=== PATIENT | female | born 1990 | race Caucasian/White ===

== ENCOUNTER 2018-06-12 10:45 | Inpatient (IN) | payer OTHER ==
[2018-06-12] MEDS ORDERED: CITRIC ACID/SODIUM CITRATE 30 ML UNIT-DOSE CUP PO ONE (11:57)
[2018-06-12] MEDS ORDERED: ELECTROLYTE-148 SOLN 500 ML IV ONE (11:57)
[2018-06-12] MEDS ORDERED: ELECTROLYTE-148 SOLN 1,000 ML IV SCH (12:00)
--- NOTE | 2018-06-12 12:07 | HP ---
Past Medical History - Admission Chief Complaint: Here for scheduled c section. History of Present Illness: 27 y/o female with SIUP at 39 weeks here for scheduled repeat section and bilateral tubal ligation. Pt desires sterilization and consents were signed in early may 2018. uncomplicated. No issues today. + FM, no VB/LOF/Ctx. History Source: Patient, Medical Record Limitations to Obtaining History: No Limitations, Intoxication - Past Medical History TECHNICAL TRANSLATOR: No: Dementia, Migraine Cardiovascular: No: CAD, HTN Pulmonary: No: Asthma, COPD, Pulmonary Embolus Gastrointestinal: No: GERD, Hiatal Hernia Hepatobiliary: No: Hepatitis B, Hepatitis C Renal/: No: Renal Failure, UTI ...: 5 ...Para: 2 ...Term: 2 ...: 0 ...Spon : 2 ...Induced : 0 ...Multiple Gestation: 0 ...LMP: 09/11/18 ...EDC by Sono: 06/18/18 Heme/Onc: No: Anemia Infectious Disease: No: MRSA, STD's Psych: No: Anxiety, Bipolar, Depression - Past Surgical History Past Surgical History: Yes: None Hx Myomectomy: No Hx Transabdominal Cerclage: No - Smoking History Smoking history: Never smoked Have you smoked in the past 12 months: No - Alcohol/Substance Use Hx Alcohol Use: No History of Substance Use: reports: None - Social History Usual Living Arrangement: Yes: With Spouse ADL: Independent History of Recent Travel: No Home Medications - Allergies Allergies/Adverse Reactions: Allergies Allergy/AdvReac Type Severity Reaction Status Date / Time No Known Allergies Allergy Verified 06/12/18 11:49 - Home Medications Home Medications: Ambulatory Orders NK [No Known Home Medication] 06/12/18 Review of Systems - Review of Systems Constitutional: reports: No Symptoms Eyes: reports: No Symptoms HENT: reports: No Symptoms Neck: reports: No Symptoms Cardiovascular: reports: No Symptoms Respiratory: reports: No Symptoms Gastrointestinal: reports: No Symptoms Genitourinary: reports: No Symptoms Breasts: reports: No Symptoms Reported Musculoskeletal: reports: No Symptoms Integumentary: reports: No Symptoms Neurological: reports: No Symptoms Endocrine: reports: No Symptoms Hematology/Lymphatic: reports: No Symptoms Psychiatric: reports: No Symptoms Physical Exam - Maternity Vital Signs: Vital Signs Temperature 97.7 F 04/11/19 10:45 Pulse Rate 68 06/12/18 10:45 Respiratory Rate 20 06/12/18 10:45 Blood Pressure 127/60 06/12/18 10:45 O2 Sat by Pulse Oximetry (%) Constitutional: Yes: Well Nourished, No Distress, Calm Eyes: Yes: Conjunctiva Clear, EOM Intact HENT: Yes: Atraumatic Neck: Yes: Supple Lungs: Clear to auscultation Breast(s): Yes: WNL - Abdominal Exam/OB Number of Fetuses: Single Presentation: Vertex Category: I Accelerations: None - Vaginal Exam/OB Amniotic Membrane Status: Intact - Physical Exam Psychiatric: Yes: Alert, Oriented Hemorrhage Risk Assessment - Risk Factors Medium Risk Factors: Yes: Prior , uterine surgery,or multiple laparotomies Risk Score: 1 Risk Level: Medium Risk Problem List - Problems (1) Term Code(s): Z34.80 - ENCOUNTER FOR SUPRVSN OF NORMAL , UNSP TRIMESTER (2) Encounter for sterilization Code(s): Z30.2 - ENCOUNTER FOR STERILIZATION Assessment/Plan 27 y/o with SIUP at 39 weeks by early sonogram (unsure LMP) here for scheduled c section and tubal ligation NST NPO Altamirano Anesthesia/nursery aware consents signed
[2018-06-12] MEDS ORDERED: ONDANSETRON 4 MG/2 ML VIAL IVPUSH PRN (12:58)
[2018-06-12] MEDS ORDERED: morphine SULFATE/Preservative Free 0.5 MG/ML (1cc Syringe) ONE (13:04)
[2018-06-12] MEDS ORDERED: METHYLERGONOVINE MALEATE 0.2 MG/1 ML AMP IM PRN (13:09)
[2018-06-12] MEDS ORDERED: oxyCODONE HCL 5 MG TABLET PO PRN (13:09)
[2018-06-12] MEDS ORDERED: KETOROLAC TROMETHAMINE 30 MG/1 ML VIAL ONE (13:18)
[2018-06-12] MEDS ORDERED: SODIUM CHLORIDE 0.9% P/F 10 ML VIAL IJ ONE (13:18)
[2018-06-12] MEDS ORDERED: ceFAZolin SODIUM 1 GM VIAL ONE (13:18)
--- NOTE | 2018-06-12 14:07 | OP ---
Operative Note - Note: Operative Date: 06/12/18 ([id number]) Pre-Operative Diagnosis: prior delivery, desire for sterilization, declined TOLAC Operation: repeat low transverse delivery Findings: normal b/l tubes and ovaries live female infant Post-Operative Diagnosis: Same as Pre-op Surgeon: Yolanda Moore Pug Machine Operator: Dirk Dorsey Anesthesiologist/HEDIS REVIEW NURSE: Morteza Lao Anesthesia: Spinal Specimens Removed: placenta, portions of bilateral fallopian tubes Estimated Blood Loss (mls): 600 Operative Report Dictated: Yes
[2018-06-12] MEDS: OXYTOCIN 20 UNITS in 0.9% NS 20 UNIT/1,000 ML INFUS.BAG IV SCH (14:10)
--- NOTE | 2018-06-12 14:43 | OP ---
DATE OF OPERATION: 06/12/2018 PREOPERATIVE DIAGNOSES: Prior section, desire for sterilization. POSTOPERATIVE DIAGNOSES: Prior section, desire for sterilization. PROCEDURE: Repeat low transverse section, bilateral tubal ligation. SURGEON: Yolanda Moore DO ANESTHESIA: Spinal by YONAS Torres. CERTIFIED PERSONAL TRAINER: OLU Bustos ESTIMATED BLOOD LOSS: 600 mL. COMPLICATIONS: None. SPECIMENS REMOVED: Placenta. COUNTS: Sponge, instrument and needle counts correct. DISPOSITION: Stable to PACU. BRIEF HISTORY AND PROCEDURE: Patient is a 27-year-old female who had been seen in the office and counseled on her options for delivery and elected to undergo a repeat section and bilateral tubal ligation. Consents for the tubal ligation were signed in the office a month prior and consent for the was signed upon admission on June 12, 2018. After consents were confirmed the patient was taken back to the operating room, given spinal anesthesia and placed in the dorsal supine position. A Altamirano catheter was placed under sterile conditions. She was prepped and draped in the usual sterile fashion. A hard timeout was performed. A Pfannenstiel skin incision was created in the skin with a scalpel and carried to the underlying layer of rectus fascia sharply. The fascia was incised on either side of the midline sharply and the fascial incision was carried in superolateral direction sharply. The fascia was tented upward and dissected off the underlying layer of rectus fascia sharply. The musculature was identified in the midline, was laterally and the peritoneum was identified and entered bluntly to allow for adequate room for delivery. A bladder blade was then inserted. A transverse incision was created in the lower uterine segment which was extended in a superolateral direction bluntly. The infant was delivered from the right occiput transverse position without difficulty. The anterior and posterior shoulder delivered with ease along with the remainder of the . The cord was clamped twice and cut in between. The was taken back to the warmer to be assessed by the neonatology staff. The placenta was then delivered intact. It was manually extracted from the uterus. The uterus was exteriorized from the abdomen, inspected and cleared of any amniotic membrane and blood clot and debris with a dry lap sponge. The hysterotomy was reapproximated in a double-layer closure, first using 1 Vicryl in running locked fashion, second using 0 Biosyn in a running fashion. Excellent hemostasis was achieved. Next the tubal ligation was performed first by elevating the right fallopian tube in the isthmic portion with the Stephanie clamp. Approximately 2 cm of tube was tied off with 2 free ties and excised with Metzenbaum scissors and sent to Pathology for permanent evaluation. The same procedure was repeated on the left fallopian tube. Bilateral tubal sites were noted to be hemostatic. The posterior cul-de-sac was suctioned of any blood clot and debris. The uterus was placed back in the abdomen. Bilateral gutters were inspected and cleared of all blood clot and debris. Bilateral tubal sites were noted to be hemostatic. The hysterotomy was noted to be hemostatic. One piece of 2 cm of Surgicel was placed on the left angle of the incision for a small amount of bleeding that was noted. Hemostasis was achieved after this. The peritoneum was reapproximated using 2-0 chromic in a running fashion. The musculature was reapproximated in a single interrupted suture using 2-0 chromic. The fascia was reapproximated using 1 Vicryl in a running fashion. The subcutaneous tissue was irrigated and hemostasis was achieved with the Bovie cautery. The subcutaneous tissue was reapproximated using 3-0 Vicryl in a running fashion. The skin was reapproximated using 3-0 Vicryl in a subcuticular fashion. Steri-Strips were applied. Patient tolerated the procedure well and was recovering in stable condition in the PACU after the procedure. YOLANDA MOORE DO /[id number]
[2018-06-12] MEDS ORDERED: diphenhydrAMINE HCL 25 MG CAPSULE (FP) PO ONE (15:10)
[2018-06-13] MEDS: SIMETHICONE 80 MG TAB.CHEW (FP) PO PRN (05:10)
[2018-06-13] MEDS: oxyCODONE HCL 5 MG TABLET PO PRN ×2 (05:10→10:51)
[2018-06-13] MEDS: IBUPROFEN 600 MG TABLET (FP) PO PRN ×3 (05:10→16:43)
--- NOTE | 2018-06-13 08:10 | PN ---
Progress Note (short form) - Note Progress Note: POD1 s/p spinal duramorph for c/s. Doing well, pain well controlled. No back pain, THURSTON, no other anesthetic issues/complications.
[2018-06-13 08:29] LABS: BASO % 0.9 % (0-2.0); EOS % 1.3 % (0-4.5); HEMATOCRIT 30.1 % (32.4-45.2); LYMPH % 11.4 % (8-40); MCH 29.1 pg (25.7-33.7); MCHC 33.1 g/dl (32.0-36.0); MEAN CELL VOLUME 87.8 fl (80-96); MEAN PLT VOLUME 7.2 fl (7.5-11.1); NEUT % 79.4 % (42.8-82.8); PLATELET COUNT 233 K/MM3 (134-434); RBC 3.43 M/mm3 (3.60-5.2); RDW 14.8 % (11.6-15.6); WHITE BLOOD COUNT 10.4 K/mm3 (4.0-10.0)
--- NOTE | 2018-06-13 09:49 | PN ---
Post Progress Note - Subjective Subjective: Pt seen/examined and doing well. Pain controlled, tolerating clears. Urine output minimal, otherwise no acute events overnight. Not yet OOB. Denies CP/ SOB/F/C/THURSTON. Post Day: 1 Type of Delivery: Repeat C/S Vital Signs: Vital Signs Temperature 98.2 F 06/13/18 06:00 Pulse Rate 80 06/13/18 06:00 Respiratory Rate 18 06/13/18 06:00 Blood Pressure 117/68 06/13/18 06:00 O2 Sat by Pulse Oximetry (%) 98 06/12/18 22:04 Uterus: Yes: Fundus Firm Incision: Yes: Dressing dry and intact Abdomen/GI: Yes: Abdomen soft Lochia: Yes: Rubra Lochia, amount: Small Extremities: Yes: Calves non-tender, Edema (+) Perineum: Yes: Intact Activity: Ambulating - Labs Labs: CBC WBC 10.4 K/mm3 (4.0-10.0) H 06/13/18 08:05 RBC 3.43 M/mm3 (3.60-5.2) L 06/13/18 08:05 Hgb 10.0 GM/dL (10.7-15.3) L 06/13/18 08:05 Hct 30.1 % (32.4-45.2) L 06/13/18 08:05 MCV 87.8 fl (80-96) 06/13/18 08:05 MCH 29.1 pg (25.7-33.7) 06/13/18 08:05 MCHC 33.1 g/dl (32.0-36.0) 06/13/18 08:05 RDW 14.8 % (11.6-15.6) 06/13/18 08:05 Plt Count 233 K/MM3 (134-434) 06/13/18 08:05 MPV 7.2 fl (7.5-11.1) L 06/13/18 08:05 Absolute Neuts (auto) 8.3 K/mm3 (1.5-8.0) H 06/13/18 08:05 Neutrophils % 79.4 % (42.8-82.8) 06/13/18 08:05 Lymphocytes % 11.4 % (8-40) D 06/13/18 08:05 Monocytes % 7.0 % (3.8-10.2) 06/13/18 08:05 Eosinophils % 1.3 % (0-4.5) 06/13/18 08:05 Basophils % 0.9 % (0-2.0) 06/13/18 08:05 Nucleated RBC % 0 % (0-0) 06/13/18 08:05 Problem List - Problems (1) Term Code(s): Z34.80 - ENCOUNTER FOR SUPRVSN OF NORMAL , UNSP TRIMESTER (2) Encounter for sterilization Code(s): Z30.2 - ENCOUNTER FOR STERILIZATION Assessment/Plan 27 y/o POD#1 s/p repeat c section and BTL pt doing well d/c obrien encourage ambulation Hgb 10.0 advance diet routine care
[2018-06-13] MEDS ORDERED: BISACODYL 10 MG SUPP.RECT RC PRN (13:42)
[2018-06-14] MEDS: SIMETHICONE 80 MG TAB.CHEW (FP) PO PRN ×3 (01:38→20:19)
[2018-06-14] MEDS: IBUPROFEN 600 MG TABLET (FP) PO PRN ×3 (01:38→20:18)
[2018-06-14] MEDS: oxyCODONE HCL 5 MG TABLET PO PRN ×3 (01:38→20:19)
[2018-06-14] MEDS: DOCUSATE SODIUM 100 MG CAPSULE (FP) PO PRN (10:05)
[2018-06-14] MEDS ORDERED: DOCUSATE SODIUM 100 MG CAPSULE (FP) PO PRN (12:25)
--- NOTE | 2018-06-14 12:25 | PN ---
Post Note - Post Date of Delivery: 06/12/18 Vital Signs: Vital Signs - 24 hr 06/13/18 06/13/18 06/13/18 13:00 14:00 22:00 Temperature 98.3 F Pulse Rate 74 Respiratory 18 18 20 Rate Blood Pressure 123/76 06/14/18 08:59 Temperature 97.1 F L Pulse Rate 65 Respiratory 20 Rate Blood Pressure 129/70 - Subjective Subjective: No Complaints, Ambulating, No Nausea or vomiting - Objective Afebrile: Yes Breast: Not engorged Abdomen: Soft, Non-tender, Other (Dressing removed no erythema or drainage) Uterus: Fundus firm Vagina: Scant lochia Extremities: Non-tender - Assessment/Plan (1) delivery delivered Assessment: Other (POD 2) Plan: Routine Care
[2018-06-14] MEDS: OXYTOCIN 20 UNITS in 0.9% NS 20 UNIT/1,000 ML INFUS.BAG IV SCH (20:12)
[2018-06-15] MEDS: oxyCODONE HCL 5 MG TABLET PO PRN ×3 (01:24→13:30)
[2018-06-15] MEDS: IBUPROFEN 600 MG TABLET (FP) PO PRN ×3 (01:24→13:36)
[2018-06-15] MEDS: SIMETHICONE 80 MG TAB.CHEW (FP) PO PRN ×3 (01:24→13:36)
[2018-06-15 08:04] LABS: BASO % 0.8 % (0-2.0); HEMATOCRIT 28.3 % (32.4-45.2); HEMOGLOBIN 9.3 GM/dL (10.7-15.3); LYMPH % 31.4 % (8-40); MCH 29.3 pg (25.7-33.7); MEAN CELL VOLUME 88.8 fl (80-96); MEAN PLT VOLUME 7.6 fl (7.5-11.1); MONO % 8.9 % (3.8-10.2); NEUT % 55.9 % (42.8-82.8); PLATELET COUNT 233 K/MM3 (134-434); RBC 3.18 M/mm3 (3.60-5.2); RDW 14.7 % (11.6-15.6); WHITE BLOOD COUNT 7.1 K/mm3 (4.0-10.0)
[2018-06-15 09:15] VITALS: BP 125/68; PULSE 90; TEMP 98.2
[2018-06-15] MEDS: DOCUSATE SODIUM 100 MG CAPSULE (FP) PO PRN (10:11)
[2018-06-15] MEDS ORDERED: oxyCODONE HCL 5 MG TABLET ONE (13:32)
[2018-06-15] MEDS ORDERED: oxyCODONE HCL 5 MG TABLET PO PRN (13:35)
--- NOTE | 2018-06-18 17:50 | PATH ---
Surgical Pathology Report Patient Name: IRASEMA DUKES Med. Rec. #: [id number] /Age/Gender: 1990 (Age: 27) / F Account: [id number] Location: [facility] OBS/FRUIT RAISER Taken: 06/12/2018 Received: 06/13/2018 Reported: 06/18/2018 Physicians: Yolanda Moore M.D. Specimen(s) Received A: PLACENTA B: RIGHT FALLOPIAN TUBE C: LEFT FALLOPIAN TUBE Clinical History term for repeat Final Diagnosis A. PLACENTA, SECTION: 555 G THIRD TRIMESTER PLACENTA WITH TRIVASCULAR UMBILICAL CORD AND UNREMARKABLE PLACENTAL MEMBRANES. B. FALLOPIAN TUBE, RIGHT, PARTIAL EXCISION: FULL LUMINAL PORTION OF UNREMARKABLE FALLOPIAN TUBE. C. FALLOPIAN TUBE, LEFT, PARTIAL EXCISION: FULL LUMINAL PORTION OF UNREMARKABLE FALLOPIAN TUBE. Electronically Signed Rebecca Malik M.D. Gross Description A. The specimen is received fresh labeled placenta and is a 555 gram, 18.5 x 14.5 x 3.2 cm. placenta with attached membranes and umbilical cord. The attached membranes are hanks, thick, cloudy and insert marginally. The umbilical cord measures the 38 cm. in length and averages 1.4 cm. in diameter. The cord inserts eccentrically, 5.5 cm. to the nearest margin. No true knots or strictures are identified. Cut surface of the umbilical cord reveals 3 vessels. The surface is zaragoza blue with moderate fibrin deposition and appropriate caliber vessel. The maternal surface is red-brown with focal defects. Sectioning reveals red-brown, spongy parenchyma. No lesions are identified. Registered Radiographer sections are submitted in three cassettes as follows: 1- membrane rolls and umbilical cord; 2-3- full thickness sections of placenta. B. Received in formalin labeled "right fallopian tube," is a 1.7 cm in length portion of fallopian tube. No fimbria are present. The outer surface is hanks zaragoza and smooth. Sectioning reveals unremarkable lumen. Registered Radiographer sections are submitted in one cassette. C. Received in formalin labeled "left fallopian tube," is a 1.3 cm in length portion of fallopian tube. No fimbria are present. The outer surface is hanks-robb and smooth. Sectioning reveals an unremarkable lumen. Registered Radiographer sections are submitted in one cassette. DL/06/17/2018 saudi06/17/2018
== END 2018-06-15 14:00 | disposition home or self-care (01) | DRG 540 ==
LOC: JLDR 10:45 → J3W 15:53
PROVIDERS: ADMIT Obstetrics & Gynecology; ATTEND Obstetrics & Gynecology
PROC: 10D00Z1 Extraction of Products of Conception, Low, Open Approach (ICD-10-PCS; principal; 2018-06-12)
PROC: 0UL70ZZ Occlusion of Bilateral Fallopian Tubes, Open Approach (ICD-10-PCS; 2018-06-12)
DX: O34.211 Maternal care for low transverse scar from previous cesarean delivery (principal); Z3A.39 39 weeks gestation of pregnancy; Z37.0 Single live birth; Z30.2 Encounter for sterilization
CPT/HCPCS: 36415; 85025; 88302-TC; 88307-TC